=== PATIENT | female | born 1945 | race Caucasian/White ===

== ENCOUNTER 2016-06-30 11:28 | Outpatient (CLI) | payer MEDICARE ==
[2016-06-30 12:45] LABS: #Basophils 0.1 thou/uL (0.0-0.2); #Eosinphils 0.2 thou/uL (0.0-0.7); #Lymphocytes 2.2 thou/uL (1.20-3.40); #Monocytes 0.7 thou/uL (0.11-0.59); #Neutrophils 4.8 thou/uL (1.40-6.50); %Basophils 1.3 % (0.0-1.0); %Eosinophils 2.9 % (0.0-10.0); %Monocytes 8.1 % (0.0-10.0); Mean Platelet Volume 5.8 fL (7.4-10.4); Red Blood Cell (RBC) Count 4.45 mill/uL (4.20-5.40)
[2016-06-30 12:58] LABS: ALT (SGPT) 28 U/L (0-55); AST (SGOT) 27 U/L (5-34); Alkaline Phosphatase 85 U/L (40-150); Anion Gap 14 mmol/L (10-20); BUN (Urea Nitrogen) 14 mg/dL (9.8-20.1); Bilirubin, Total 0.4 mg/dL (0.2-1.2); Calc. Creatinine Clearance 0 mL/min (70-130); Calcium 9.3 mg/dL (7.8-10.44); Carbon Dioxide 24 mmol/L (23-31); Chloride 110 mmol/L (98-107); Estimated GFR-MDRD 56; Globulin 2.5 g/dL (2.4-3.5); LDL Cholesterol, Calculated 76 mg/dL; Protein, Total 6.8 g/dL (5.8-8.1)
== END 2016-06-30 11:29 ==
LOC: HPCALD 11:28
PROVIDERS: ATTEND Family Medicine
DX: E78.2 Mixed hyperlipidemia (principal); I10 Essential (primary) hypertension
CPT/HCPCS: 36415; 80053; 80061; 84443; 85025

== ENCOUNTER 2022-03-25 12:00 | Outpatient (CLI) | payer MEDICARE | END 2022-03-25 12:01 | disposition home or self-care (01) | LOC: BURRAD 12:00 | PROVIDERS: ATTEND Family Medicine | DX: M89.311 Hypertrophy of bone, right shoulder (principal) ==

== ENCOUNTER 2025-04-27 09:11 | Outpatient (CLI) | payer MEDICARE | END 2025-04-27 09:12 | disposition home or self-care (01) | LOC: BUREKG 09:11 | PROVIDERS: ATTEND Family Medicine | DX: I49.9 Cardiac arrhythmia, unspecified (principal) | CPT/HCPCS: 93005; 93010 ==